=== PATIENT | female | born 1955 | race Caucasian/White ===

== ENCOUNTER 2017-07-21 13:05 | Emergency (ER) | payer OTHER ==
[2017-07-21 13:14] VITALS: BP 109/70; PULSE 74; TEMP 99.1; BMI 33.1
[2017-07-21 14:07] LABS: URINE APPEARANCE CLOUDY; URINE BILIRUBIN NEGATIVE (NEGATIVE); URINE BLOOD NEGATIVE (NEGATIVE); URINE COLOR AMBER; URINE GLUCOSE (UA) NEGATIVE (NEGATIVE); URINE KETONE NEGATIVE (NEGATIVE); URINE LEUK ESTERASE NEGATIVE (NEGATIVE); URINE NITRITE NEGATIVE (NEGATIVE); URINE PROTEIN 1+ (NEGATIVE)
--- NOTE | 2017-07-21 14:07 | PDOC ---
History of Present Illness - General Chief Complaint: Pain Stated Complaint: flank BACK PAIN Time Seen by Provider: 07/21/17 14:06 - History of Present Illness Initial Comments: 07/21/17 14:07 Ms. Patterson is a 62 yo female w/ pmh of hypothyroidism, kidney stones, diverticulitis, and anxiety who presents c/o a 2 day history of severe left sided abdominal and flank pain. She reports this episode started 4 days ago with 2 days of constipation which was relieved with some "smooth move" laxative tea. She had one small bowel movement but subsequently developed the left sided pain. She reports it is crampy and comes and goes. Pain is not related to food and she has had another slightly loose bowel movement today. She currently has no other complaints. The patient denies chest pain, shortness of breath, headache and dizziness. Denies fever, chills, nausea, vomit, and diarrhea. Denies dysuria, frequency, urgency and hematuria. Allergies: Penicillin and sulfa drugs. Past History - Past Medical History Allergies/Adverse Reactions: Allergies Allergy/AdvReac Type Severity Reaction Status Date / Time Penicillins Allergy Verified 07/21/17 13:10 sulfamethoxazole Allergy Verified 07/21/17 13:10 [From Bactrim] trimethoprim [From Bactrim] Allergy Verified 07/21/17 13:10 Home Medications: Ambulatory Orders Levothyroxine [Synthroid -] 125 mcg PO DAILY 10/11/13 Bupropion HCl [Wellbutrin Xl -] 150 mg PO DAILY 07/21/17 Levofloxacin [Levaquin] 750 mg PO DAILY #10 tab 07/21/17 Metronidazole [Flagyl -] 500 mg PO BID #20 tablet 07/21/17 Omeprazole 20 mg PO DAILY 07/21/17 Oxycodone HCl/Acetaminophen [Percocet 5-325 mg Tablet -] 1 combo PO Q6H PRN #12 tablet MDD 4 07/21/17 Oxycodone HCl/Acetaminophen [Percocet 5-325 mg Tablet] 1 tab PO Q6H PRN #16 tablet MDD 4 tabs 07/21/17 COPD: No GI Disorders: Yes (DIVERTICULITIS) Kidney Stones: Yes Thyroid Disease: Yes (HYPOTHYROIDISM) Other medical history: vertigo - Immunization History Immunization Up to Date: No - Suicide/Smoking/Psychosocial Hx Smoking History: Current every day smoker Have you smoked in the past 12 months: Yes Number of Cigarettes Smoked Daily: 10 Information on smoking cessation initiated: Yes 'Breaking Loose' booklet given: 07/21/17 Hx Alcohol Use: No Drug/Substance Use Hx: No Substance Use Type: Alcohol Review of Systems - Review of Systems Comments:: 07/21/17 15:41 GENERAL/CONSTITUTIONAL: No fever or chills. No weakness. HEAD, EYES, EARS, NOSE AND THROAT: No change in vision. No ear pain or discharge. No sore throat. CARDIOVASCULAR: No chest pain or shortness of breath RESPIRATORY: No cough, wheezing, or hemoptysis. GASTROINTESTINAL: +Left sided abdominal pain on and off for 2 days. Constipation now relieved. No nausea, vomiting, or diarrhea. GENITOURINARY: No dysuria, frequency, or change in urination. MUSCULOSKELETAL: No joint or muscle swelling or pain. No neck or back pain. SKIN: No rash NEUROLOGIC: No headache, vertigo, loss of consciousness, or change in strength/ sensation. ENDOCRINE: No increased thirst. No abnormal weight change HEMATOLOGIC/LYMPHATIC: No anemia, easy bleeding, or history of blood clots. ALLERGIC/IMMUNOLOGIC: No hives or skin allergy. *Physical Exam - Vital Signs Last Vital Signs Temp Pulse Resp BP Pulse Ox 99.1 F 74 18 109/70 100 07/21/17 13:11 07/21/17 13:11 07/21/17 13:11 07/21/17 13:11 07/21/17 13:11 - Physical Exam Comments: 07/21/17 15:41 GENERAL: Awake, alert, and fully oriented, in no acute distress HEAD: No signs of trauma, normocephalic, atraumatic EYES: PERRLA, EOMI, sclera anicteric, conjunctiva clear ENT: Auricles normal inspection, hearing grossly normal, nares patent, oropharynx clear without exudates. Moist mucosa NECK: Normal ROM, supple, no lymphadenopathy, JVD, or masses LUNGS: No distress, speaks full sentences, clear to auscultation bilaterally HEART: Regular rate and rhythm, normal S1 and S2, no murmurs, rubs or gallops, peripheral pulses normal and equal bilaterally. ABDOMEN: +Left sided tenderness to palpation. LUQ and LLQ palpation ellicits LLQ pain. Soft, normoactive bowel sounds. No guarding, no rebound. No masses EXTREMITIES: Normal inspection, Normal range of motion, no edema. No clubbing or cyanosis. NEUROLOGICAL: Cranial nerves II through XII grossly intact. Normal speech, normal gait, no focal sensorimotor deficits SKIN: Warm, Dry, normal turgor, no rashes or lesions noted. ED Treatment Course - LABORATORY CBC & Chemistry Diagram: 07/21/17 14:55 07/21/17 14:55 Medical Decision Making - Medical Decision Making 07/21/17 15:42 Ms. Patterson is a 62 yo female w/ pmh of hypothyroidism, kidney stones, diverticulitis, and anxiety who presents w/ symptoms concerning for left sided kidney stone. CT spiral ordered for evaluation. 07/21/17 16:47 CT revealed acute diverticulitis without drainable collection. Patient given oral antibiotics Levofloxacin and metronidazole with home prescriptions as well as percocet for pain control. Patient will follow-up with GI within 1-2 days - patient verbalized understanding and agreement. Will d/c to home. *DC/Admit/Observation/Transfer Diagnosis at time of Disposition: Diverticulitis - Discharge Dispostion Disposition: HOME - Prescriptions Prescriptions: Levofloxacin [Levaquin] 750 mg PO DAILY #10 tab Metronidazole [Flagyl -] 500 mg PO BID #20 tablet Oxycodone HCl/Acetaminophen [Percocet 5-325 mg Tablet -] 1 combo PO Q6H PRN #12 tablet MDD 4 PRN Reason: Pain Oxycodone HCl/Acetaminophen [Percocet 5-325 mg Tablet] 1 tab PO Q6H PRN #16 tablet MDD 4 tabs PRN Reason: Pain Level 6-10 - Referrals Referrals: Jenny Clark MD [Primary Care Provider] - Jim Berg MD [Staff Physician] - - Patient Instructions Printed Discharge Instructions: DI for Diverticulitis Additional Instructions: Please follow-up with your Scientific Specialist within 1-2 days. If you are unable to reach them please use provided alternate GI physician contact information. Take antibiotics as proscribed and use pain control medication when necessary. Please return if you experience any fever, increased pain not controllable with proscribed pain medication, or any other concerning symptoms. - Post Discharge Activity
[2017-07-21 14:09] LABS: EPI CELLS MODERATE /HPF (FEW); URINE MUCUS RARE
--- NOTE | 2017-07-21 14:40 | PDOC ---
Attending Attestation - Resident Resident Name: Shekhar Shrestha - ED Attending Attestation I have performed the following: I have examined & evaluated the patient, The case was reviewed & discussed with the resident, I agree w/resident's findings & plan, Exceptions are as noted - HPI HPI: 07/21/17 14:40 62y F hx of kidney stones, diverticlitis, presents with L flank pain, pain worsening, intermittent,. no associated fev/erchills, urianry or bowel symptmos. on exam pt has mild L sided abd tenderness, no rebound or garding and she is otherwise well apeparing ddx includes uti, kidney stone, diverticulitis will ck ua, labs, possible CT - Physicial Exam PE: see above - Medical Decision Making UA shows no blood CT c/w divertulitis w/o abscess/perf as pts albs unremarkble and she is well apeapring she is a good candidate for outpatient management of diverticulitis will have pt fu with her GI doc and PMD return precautiosn were discused
[2017-07-21] MEDS ORDERED: morphine CARPU-JECT 2 MG/1 ML DISP.SYRIN IVPUSH ONE (14:42)
[2017-07-21] MEDS ORDERED: KETOROLAC TROMETHAMINE 15 MG/ML VIAL IVPUSH ONE (14:46)
[2017-07-21] MEDS ORDERED: KETOROLAC TROMETHAMINE 15 MG/ML VIAL ONE (14:57)
[2017-07-21 15:03] LABS: BASO % 0.8 % (0-2.0); EOS % 0.8 % (0-4.5); HEMOGLOBIN 14.4 GM/dL (10.7-15.3); LYMPH % 12.6 % (8-40); MCH 30.6 pg (25.7-33.7); MCHC 32.7 g/dl (32.0-36.0); MEAN CELL VOLUME 93.6 fl (80-96); MEAN PLT VOLUME 9.2 fl (7.5-11.1); MONO % 9.1 % (3.8-10.2); NEUT % 76.7 % (42.8-82.8); PLATELET COUNT 172 K/MM3 (134-434); RDW 13.3 % (11.6-15.6); WHITE BLOOD COUNT 9.3 K/mm3 (4.0-10.0)
[2017-07-21 15:25] LABS: ANION GAP 2 (8-16); BILIRUBIN,TOTAL 0.6 mg/dL (0.2-1.0); BLOOD UREA NITROGEN 11 mg/dL (7-18); CALCIUM 9.3 mg/dL (8.5-10.1); CHLORIDE 106 mmol/L (98-107); CO2 32 mmol/L (21-32); CREATININE 0.8 mg/dL (0.55-1.02); GLUCOSE,RANDOM 107 mg/dL (74-106); POTASSIUM 4.5 mmol/L (3.5-5.1); SGOT/AST 12 U/L (15-37); SGPT/ALT 28 U/L (12-78); SODIUM 140 mmol/L (136-145); TOT PROT 7.5 g/dl (6.4-8.2)
[2017-07-21 15:26] LABS: ALK PHOS 95 U/L (45-117)
[2017-07-21] MEDS ORDERED: LEVOFLOXACIN 250 MG TABLET (FP) PO ONE (16:39)
[2017-07-21] MEDS ORDERED: metroNIDAZOLE 250 MG TABLET PO ONE (16:39)
[2017-07-21] MEDS ORDERED: metroNIDAZOLE 250 MG TABLET ONE (17:03)
[2017-07-21] MEDS ORDERED: LEVOFLOXACIN 250 MG TABLET (FP) ONE (17:04)
[2017-07-21] MEDS ORDERED: LEVOFLOXACIN 500 MG TABLET (FP) ONE (17:04)
== END 2017-07-21 17:30 | disposition home or self-care (01) ==
LOC: JER 13:05
PROC: 3E0333Z Introduction of Anti-inflammatory into Peripheral Vein, Percutaneous Approach (ICD-10-PCS; principal; 2017-07-21)
DX: K57.92 Diverticulitis of intestine, part unspecified, without perforation or abscess without bleeding (principal); E03.9 Hypothyroidism, unspecified; F41.9 Anxiety disorder, unspecified; Z87.442 Personal history of urinary calculi
CPT/HCPCS: 36415; 74176; 80053; 81003; 81015; 85025; 96374; 99283-25

== ENCOUNTER 2021-05-21 16:59 | Emergency (ER) | payer OTHER ==
[2021-05-21 17:09] VITALS: BP 103/70; PULSE 51; TEMP 98.3; BMI 28.3
== END 2021-05-21 17:06 | disposition left against medical advice (07) ==
LOC: JER 16:59
DX: R10.32 Left lower quadrant pain (principal); R11.2 Nausea with vomiting, unspecified
CPT/HCPCS: 99281-25

== ENCOUNTER 2022-08-23 05:36 | Emergency (ER) | payer OTHER ==
[2022-08-23 05:51] VITALS: BMI 30.9
[2022-08-23] MEDS ORDERED: ONDANSETRON *ODT* 4 MG TABLET SL ONE (06:22)
[2022-08-23] MEDS ORDERED: ONDANSETRON *ODT* 4 MG TABLET ONE (06:31)
[2022-08-23 07:28] VITALS: BP 156/69; PULSE 60; RESP 20; TEMP 98.2
== END 2022-08-23 08:00 | disposition home or self-care (01) ==
LOC: JER 05:36
DX: S42.91XA Fracture of right shoulder girdle, part unspecified, initial encounter for closed fracture (principal); W01.0XXA Fall on same level from slipping, tripping and stumbling without subsequent striking against object, initial encounter
CPT/HCPCS: 73030-TC-RT-FY; 73200-TC-RT; 99285-25; Q0162

== ENCOUNTER 2022-09-30 04:07 | Day surgery (SDC) | payer OTHER ==
[2022-09-28 13:32] VITALS: BMI 28.5
[~2022-09-30 04:07] MED LIST: LIDOCAINE 1% P/F 10 MG/ML VIAL PNB ONE
[2022-09-30 09:53] VITALS: RESP 20
[2022-09-30] MEDS ORDERED: LIDOCAINE 1% P/F 10 MG/ML VIAL PNB ONE (10:28)
[2022-09-30 11:04] VITALS: BP 137/66; PULSE 59; TEMP 96.6
== END 2022-09-30 11:30 | disposition home or self-care (01) ==
LOC: JASU-SURG 04:07
PROVIDERS: ATTEND Pain Medicine Pain Medicine
PROC: 01HY3MZ Insertion of Neurostimulator Lead into Peripheral Nerve, Percutaneous Approach (ICD-10-PCS; principal; 2022-09-30 11:00)
DX: G89.4 Chronic pain syndrome (principal); M25.511 Pain in right shoulder
CPT/HCPCS: 64555; C1778

== ENCOUNTER 2022-11-18 03:57 | Day surgery (SDC) | payer OTHER ==
[2022-11-16 12:07] VITALS: BMI 28.5
[~2022-11-18 03:57] MED LIST changes: -LIDOCAINE 1% P/F 10 MG/ML VIAL PNB ONE; +LIDOCAINE HCL 1% PRESERVATIVE FREE - 30ML VIAL IJ ONE
[2022-11-18] MEDS ORDERED: LIDOCAINE HCL/PF 1% SDV 5ML VIAL ONE (07:26)
[2022-11-18] MEDS ORDERED: ACETAMINOPHEN 500 MG TABLET (FP) PO PRN (09:01)
[2022-11-18] MEDS ORDERED: LIDOCAINE HCL 1% PRESERVATIVE FREE - 30ML VIAL IJ ONE (10:48)
[2022-11-18 11:18] VITALS: TEMP 97.4
[2022-11-18 12:16] VITALS: BP 130/70; PULSE 55; RESP 18
== END 2022-11-18 11:40 | disposition home or self-care (01) ==
LOC: JASU-SURG 03:57
PROVIDERS: ATTEND Pain Medicine Pain Medicine
PROC: 01HY3MZ Insertion of Neurostimulator Lead into Peripheral Nerve, Percutaneous Approach (ICD-10-PCS; principal; 2022-11-18 11:00)
DX: G89.4 Chronic pain syndrome (principal); M25.511 Pain in right shoulder
CPT/HCPCS: 64555; C1778

== ENCOUNTER 2024-05-22 08:26 | Day surgery (SDC) | payer OTHER ==
[2024-05-20 12:14] VITALS: BMI 31.8
[2024-05-22] MEDS ORDERED: CARBACHOL 0.01% INTRA-OCULAR 1.5 ML VIAL ONE (08:41)
[2024-05-22] MEDS ORDERED: EPINEPHrine/PF 1 MG/1 ML (1:1,000) AMPULE ONE (08:41)
[2024-05-22] MEDS ORDERED: BSS (NA/CA/MG/K) BALANCED SALT SOLUTION OPHTH SOLN 15 ML BOTTLE ONE (08:41)
[2024-05-22] MEDS ORDERED: NEO/POLYMYX B SULF/DEXAMETH OPHTHALMIC 5ML BOTTLE ONE (08:41)
[2024-05-22] MEDS ORDERED: TETRACAINE 0.5% OPHTH SOLN 2 ML BOTTLE ONE (08:41)
[2024-05-22] MEDS ORDERED: LIDOCAINE 1% P/F 10 MG/ML VIAL ONE (08:41)
[2024-05-22] MEDS: CYCLOPENTOLATE 2% OPHTH SOLN 2 ML BOTTLE ONE (08:45)
[2024-05-22] MEDS: TROPICAMIDE 1% OPHTH SOLN 15 ML BOTTLE ONE (08:45)
[2024-05-22] MEDS: CIPROFLOXACIN 0.3% EYE DROPS 5 ML BOTTLE ONE (08:45)
[2024-05-22] MEDS: PHENYLEPHRINE 2.5% OPTHALMIC DROP 2ML BOTTLE ONE (08:45)
[2024-05-22] MEDS ORDERED: MIDAZOLAM HCL 2 MG/2 ML SINGLE DOSE VIAL ONE (10:22)
[2024-05-22 11:02] VITALS: RESP 16; TEMP 97.1
[2024-05-22 11:38] VITALS: BP 130/62; PULSE 54
== END 2024-05-22 11:20 | disposition home or self-care (01) ==
LOC: FASU 08:26
PROVIDERS: ATTEND Ophthalmology
PROC: 08RK3JZ Replacement of Left Lens with Synthetic Substitute, Percutaneous Approach (ICD-10-PCS; principal; 2024-05-22 10:34)
DX: H26.8 Other specified cataract (principal)
CPT/HCPCS: 66984; V2632

== ENCOUNTER 2024-11-30 22:26 | Inpatient (IN) | payer OTHER ==
[2024-11-30 22:33] VITALS: BMI 28.3
[2024-11-30] MEDS: LACTATED RINGERS SOLUTION 1000 ML INFUS.BAG IV ONE (23:23)
[2024-11-30 23:28] LABS: ABSOLUTE IMMATURE GRANULOCYTES 0.01 x10^3/uL (0.0-0.031); BASOPHILS # 0.05 x10^3/uL (0.01-0.08); EOSINOPHILS # 0.13 x10^3/uL (0.04-0.36); HEMATOCRIT 44.8 % (34.1-44.9); HEMOGLOBIN 14.6 g/dL (11.2-15.7); MCHC 32.6 g/dl (32.2-35.5); MEAN PLT VOLUME 10.6 fl (9.4-12.3); MONOCYTE # 0.73 x10^3/uL (0.24-0.86); MONOCYTE % 11.5 % (4.7-12.5); PLATELET COUNT 190 x10^3/uL (182-369); RDW 13.2 % (12.4-16.4)
[2024-11-30] MEDS ORDERED: ONDANSETRON 4 MG/2 ML VIAL ONE (23:33)
[2024-11-30] MEDS ORDERED: ACETAMINOPHEN INJECTION 100 ML ONE (23:33)
[2024-11-30 23:36] LABS: INR 0.99 (0.83-1.09); PROTHROMBIN TIME (PATIENT) 10.8 SEC (9.7-13.0)
[2024-11-30 23:39] LABS: ACTIVATED PTT 29.8 SECONDS (25.2-36.5)
[2024-12-01] MEDS: ONDANSETRON 4 MG/2 ML VIAL IVPUSH ONE (00:08)
[2024-12-01] MEDS: ACETAMINOPHEN 1000 MG/100 ML BAG IVPB ONE (00:08)
[2024-12-01 00:43] LABS: VENOUS BASE EXCESS -1.9 mmol/L (-2-2); VENOUS O2 SATURATION 78.7 % (70-80); VENOUS PCO2 36.2 mmHg (38-52); VENOUS PH 7.405 (7.310-7.410)
[2024-12-01 01:39] LABS: POTASSIUM 3.7 mmol/L (3.5-5.1)
[2024-12-01 01:41] LABS: CALCIUM 9.3 mg/dL (8.5-10.1)
[2024-12-01 01:41] LABS: LACTIC ACID 2.8 mmol/L (0.4-2.0)
[2024-12-01 01:42] LABS: ALBUMIN 3.6 g/dl (3.4-5.0); BLOOD UREA NITROGEN 16.1 mg/dL (7-18); MAGNESIUM 1.9 mg/dL (1.8-2.4)
[2024-12-01 01:46] LABS: CREATININE 0.8 mg/dL (0.55-1.3)
[2024-12-01 01:47] LABS: BILIRUBIN,TOTAL 0.9 mg/dL (0.2-1); TOT PROT 7.5 g/dl (6.4-8.2)
[2024-12-01 01:50] LABS: N-TERMINAL BNP 238.4 pg/ml (5-125)
[2024-12-01] MEDS ORDERED: FAMOTIDINE 20 MG/50 ML IVPB 20 MG/50 ML MG IVPB ONE (03:16)
[2024-12-01] MEDS: FAMOTIDINE 20 MG/50 ML IVPB 20 MG/50 ML MG IVPB ONE (03:23)
[2024-12-01] MEDS: LACTATED RINGERS SOLUTION 1000 ML INFUS.BAG IV ONE (04:48)
[2024-12-01 05:12] LABS: EPI CELLS 6 /uL (0-25.1); HYALINE CASTS 1 /uL (0-3.1); PH,URINE 7.5 (5.0-8.0); URINE APPEARANCE CLEAR; URINE BACTERIA 48 /uL (0-1359); URINE BILIRUBIN NEGATIVE (NEGATIVE); URINE COLOR YELLOW; URINE GLUCOSE (UA) NEGATIVE (NEGATIVE); URINE KETONE NEGATIVE (NEGATIVE); URINE LEUK ESTERASE NEGATIVE (NEGATIVE); URINE NITRITE NEGATIVE (NEGATIVE); URINE PROTEIN 1+ (NEGATIVE); URINE RBC 39 /uL (0-23.9); URINE WBC 4 /uL (0-25.8)
[2024-12-01] MEDS ORDERED: CIPROFLOXACIN 400 MG/D5W 400 MG/200 ML IVPB IVPB ONE (07:18)
[2024-12-01] MEDS: ACETAMINOPHEN 1000 MG/100 ML BAG IVPB PRN (10:39)
[2024-12-01] MEDS ORDERED: ACETAMINOPHEN INJECTION 100 ML ONE (10:41)
[2024-12-01] MEDS: LACTATED RINGERS SOLUTION 1,000 ML/1,000 ML INFUS.BAG IV SCH (11:10)
[2024-12-01] MEDS ORDERED: CIPROFLOXACIN 200 MG/D5W 100 ML IVPB SCH (19:00)
[2024-12-01] MEDS: MELATONIN 5 MG TABLETS PO PRN ×2 (21:15→23:44)
[2024-12-01] MEDS: hydrOXYzine PAMOATE 25 MG CAPSULE (FP) PO ONE (23:43)
[2024-12-02 08:12] LABS: ABSOLUTE IMMATURE GRANULOCYTES 0.01 x10^3/uL (0.0-0.031); BASOPHILS # 0.04 x10^3/uL (0.01-0.08); EOSINOPHIL % 3.6 % (0.7-5.8); EOSINOPHILS # 0.14 x10^3/uL (0.04-0.36); HEMATOCRIT 38.6 % (34.1-44.9); HEMOGLOBIN 12.2 g/dL (11.2-15.7); MCHC 31.6 g/dl (32.2-35.5); MEAN CELL VOLUME 98.2 fl (79.4-94.8); MEAN PLT VOLUME 10.5 fl (9.4-12.3); MONOCYTE # 0.42 x10^3/uL (0.24-0.86); MONOCYTE % 10.7 % (4.7-12.5); PLATELET COUNT 149 x10^3/uL (182-369); RDW 13.3 % (12.4-16.4)
[2024-12-02 08:36] LABS: ALBUMIN 2.8 g/dl (3.4-5.0); BLOOD UREA NITROGEN 7.1 mg/dL (7-18); CALCIUM 9.1 mg/dL (8.5-10.1)
[2024-12-02 08:39] LABS: CREATININE 0.5 mg/dL (0.55-1.3)
[2024-12-02 08:41] LABS: BILIRUBIN,TOTAL 0.8 mg/dL (0.2-1); TOT PROT 5.8 g/dl (6.4-8.2)
[2024-12-02] MEDS: LIDOCAINE 5% TOPICAL PATCH TP SCH (13:08)
[2024-12-02] MEDS ORDERED: ACETAMINOPHEN 325 MG TABLET (FP) PO PRN ×2 (14:50→16:57)
[2024-12-02] MEDS ORDERED: ONDANSETRON 4 MG/2 ML VIAL IVPUSH PRN ×2 (14:50→16:57)
[2024-12-02] MEDS ORDERED: oxyCODONE HCL 5 MG TABLET PO PRN ×3 (14:50→16:57)
[2024-12-02] MEDS ORDERED: BUPIVACAINE HCL/PF 0.25% (2.5MG/ML) 10 ML VIAL ONE (15:07)
[2024-12-02] MEDS ORDERED: ACETAMINOPHEN INJECTION 100 ML ONE (15:07)
[2024-12-02] MEDS ORDERED: SUCCINYLCHOLINE CHLORIDE 200 MG/10 ML SYRINGE ONE (15:10)
[2024-12-02] MEDS ORDERED: PROPOFOL 20 ML ONE (15:10)
[2024-12-02] MEDS ORDERED: ROCURONIUM BROMIDE 50 MG/5 ML SYRINGE ONE (15:19)
[2024-12-02] MEDS: BUPIVACAINE HCL/PF 0.25% (2.5MG/ML) 10 ML VIAL IJ ONE (15:24)
[2024-12-02] MEDS ORDERED: KETOROLAC TROMETHAMINE 30 MG/1 ML VIAL ONE (15:35)
[2024-12-02] MEDS ORDERED: DEXAMETHASONE SOD PHOSPHATE 4 MG/1 ML VIAL ONE (15:35)
[2024-12-02] MEDS ORDERED: SUGAMMADEX SODIUM 200 MG/2 ML VIAL ONE (16:17)
[2024-12-02] MEDS ORDERED: MELATONIN 5 MG TABLETS PO PRN (16:57)
[2024-12-02] MEDS: ACETAMINOPHEN 325 MG TABLET (FP) PO SCH (17:11)
[2024-12-02] MEDS: LACTATED RINGERS SOLUTION 1,000 ML/1,000 ML INFUS.BAG IV SCH (19:58)
[2024-12-02] MEDS: LIDOCAINE PATCH REMOVAL MC SCH (21:28)
[2024-12-02] MEDS ORDERED: LIDOCAINE PATCH REMOVAL MC SCH (22:00)
[2024-12-02] MEDS: oxyCODONE HCL 5 MG TABLET PO PRN (23:01)
[2024-12-03 01:36] VITALS: RESP 18
[2024-12-03] MEDS: LEVOTHYROXINE 75 MCG, LEVOTHYROXINE 100 MCG PO SCH (06:11)
[2024-12-03 06:30] VITALS: BP 111/56; PULSE 60; TEMP 97.5
[2024-12-03] MEDS ORDERED: LEVOTHYROXINE 75 MCG, LEVOTHYROXINE 100 MCG PO SCH (07:00)
[2024-12-03 08:19] LABS: HEMATOCRIT 34.3 % (34.1-44.9); HEMOGLOBIN 11.2 g/dL (11.2-15.7); MCHC 32.7 g/dl (32.2-35.5); MEAN PLT VOLUME 10.6 fl (9.4-12.3); PLATELET COUNT 147 x10^3/uL (182-369); RDW 13.1 % (12.4-16.4)
[2024-12-03 08:29] LABS: POTASSIUM 3.8 mmol/L (3.5-5.1)
[2024-12-03 08:39] LABS: CALCIUM 8.6 mg/dL (8.5-10.1)
[2024-12-03 08:40] LABS: ALBUMIN 2.7 g/dl (3.4-5.0); BLOOD UREA NITROGEN 6.9 mg/dL (7-18); MAGNESIUM 1.7 mg/dL (1.8-2.4)
[2024-12-03 08:43] LABS: CREATININE 0.6 mg/dL (0.55-1.3)
[2024-12-03 08:45] LABS: TOT PROT 5.6 g/dl (6.4-8.2)
[2024-12-03] MEDS ORDERED: LEVOTHYROXINE NA 150 MCG TABLET PO SCH (10:00)
[2024-12-03] MEDS: LIDOCAINE 5% TOPICAL PATCH TP SCH (10:10)
[2024-12-03] MEDS: MAGNESIUM OXIDE 400 MG TABLET (FP) PO ONE (10:12)
== END 2024-12-03 11:58 | disposition home or self-care (01) | DRG 419 ==
LOC: JER 22:26 → INTOOBSV 12-01 07:17 → UNDOADMOB 12-01 07:17 → JERBED 12-01 07:17 → J8W 12-01 13:22 → JERBED 12-01 13:22 → OBSVTOIN 12-02 16:25
PROVIDERS: ADMIT Internal Medicine; ATTEND Nurse Practitioner Family
PROC: 0FT44ZZ Resection of Gallbladder, Percutaneous Endoscopic Approach (ICD-10-PCS; principal; 2024-12-02 16:30)
DX: K81.0 Acute cholecystitis (principal); E03.9 Hypothyroidism, unspecified; I10 Essential (primary) hypertension; E78.5 Hyperlipidemia, unspecified
CPT/HCPCS: 36415; 71045-TC-FY; 74177-TC; 76705-TC; 78226-TC; 80053; 81003; 82803; 83605; 83735; 83880; 84100; 84439; 84443; 84484; 85025; 85027; 85610; 85730; 86850; 86900; 86901; 87086; 88304-TC; 93005; 93010; 94760; 99285-25; A9537; G0378; J0131; Q9967